=== PATIENT | female | born 2000 | race Caucasian/White ===

== ENCOUNTER 2025-02-24 15:06 | Emergency (ER) | payer OTHER, SELFPAY ==
[2025-02-24 15:08] VITALS: BP 127/68; PULSE 94; RESP 20; TEMP 37; O2SAT 98
--- NOTE | 2025-02-24 15:30 | DI.US_ITS ---
Exam(s) US PELVIS TRANSVAGINAL EXAM: US PELVIS TRANSVAGINAL CLINICAL HISTORY: bleeding post mifeprostone, post 9 days. TECHNIQUE: Transabdominal and transvaginal pelvic ultrasound was performed using standard protocol. COMPARISON: No exams were available for comparison FINDINGS: UTERUS: Position: Anteverted. Size: 10.9 long by 4.1 AP by 6.2 transverse cm Endometrium: 2.7 cm. The endometrium is thickened and heterogeneous. In addition complex fluid is se en within the canal. This may reflect hemorrhage. Myometrium: Unremarkable. Cervix: Unremarkable. OVARIES: Right: 3.5 x 1.7 x 3.4 cm Cyst or mass: No suspicious cystic or solid masses. Left: 1.9 x 1.4 x 2.4 cm Cyst or mass: No suspicious cystic or solid masses. DOPPLER: Color: Symmetric and uniform flow to both ovaries. CUL-DE-SAC: Free fluid: None. Other: None. IMPRESSION: 1. Thickened endometrium at 2.7 cm with heterogeneous fluid seen within the endometrial canal suggest ing hemorrhage. 2. Unremarkable bilateral ovaries. DATA REPOSITORY:
[2025-02-24 17:51] LABS: Abs Immature Grans 0.07 10^3/uL (0.0-0.06); Absolute Basophil Count 0.04 10^3/uL (0.0-0.2); Absolute Eosinophil Count 0.13 10^3/uL (0.0-0.7); Absolute Lymphocyte Count 1.41 10^3/uL (1.2-3.4); Absolute Monocyte Count 0.53 10^3/uL (0.1-0.8); Absolute Neutrophil Count 7.96 10^3/uL (1.2-6.7); Basophils % 0.4 %; Eosinophils % 1.3 %; HCT 35.6 % (36.0-46.0); HGB 11.6 g/dL (11.2-15.7); Immature Grans % 0.7 %; Lymphocytes % 13.9 %; MCH 28.2 pg (27.0-33.0); MCHC 32.6 % (32.0-36.0); MCV 87 fL (80-95); MPV 9.5 fL (8.0-11.0); Monocytes % 5.2 %; Neutrophils % 78.5 %; Platelet Count 265 10^3/uL (130-400); RBC 4.11 10^6/uL (3.93-5.22); RDW-SD 41.1 fL; WBC 10.14 10^3/uL (4.4-10.8)
[2025-02-24 17:58] LABS: ALT 33 U/L (14-59); AST 11 U/L (15-37); Albumin 3.9 g/dL (3.4-5.0); Alkaline Phosphatase 69 U/L (46-116); BUN 12 mg/dL (7-18); Bilirubin, Total 0.4 mg/dL (0.2-1.0); Calcium 8.9 mg/dL (8.5-10.1); Chloride 104 mmol/L (98-107); Estimated GFR 80.18 (mL/min/1.73m2); Glucose 95 mg/dL (74-106); Potassium 3.4 mmol/L (3.5-5.1); Sodium 141 mmol/L (136-145); Total Protein 7.3 g/dL (6.4-8.2)
[2025-02-24 18:17] LABS: HCG Quant, Pregnancy 4485 mIU/mL (1-3)
[2025-02-24 18:36] LABS: Bilirubin Color Interference (Negative); Blood Color Interference (Negative); Clarity Cloudy (Clear); Glucose Color Interference mg/dL (Negative); Ketones Color Interference mg/dL (Negative); Nitrite Color Interference (Negative); Specific Gravity 1.011 (1.005-1.025); Urobilinogen Color Interference mg/dL (Up to 0.2)
[2025-02-24 18:37] LABS: Leukocyte Esterase Color Interference (Negative); RBC >50 HPF (0-2)
[2025-02-24 18:38] LABS: C & S Indicated? Yes
[2025-02-24] MEDS: miSOPROStol 100 MCG TAB 1800 MCG PO (19:09)
[2025-02-24 19:15] VITALS: BP 113/55; PULSE 79; RESP 12; TEMP 36.5; O2SAT 99
--- NOTE | 2025-02-24 20:16 | W.ED.GENAD ---
Discharge Plan Disposition Patient Disposition: Home Condition: Stable Discharge Details Clinical Impression: complicated with hemorrhage Primary Care Provider: Unknown,Unknown ED Provider: Shirley Taylor Home Meds and New Rx's Prescriptions: Continued verapamil 120 mg tablet extended release 120 mg PO DAILY Qty: 30 5RF cholecalciferol (vitamin D3) 250 mcg (10,000 unit) capsule 250 mcg PO DAILY lamotrigine 25 mg tablet extended release 24hr 25 mg PO DAILY bupropion HCl 150 mg tablet extended release 24 hr 150 mg PO DAILY hydroxyzine HCl 25 mg tablet 25 mg PO .daily pm Discharge Instructions Instructions: Additional Instructions: We given a dose of misoprostol in the emergency department You will take another dose in 8 hours of 600 mcg or 3 pills followed by an additional dose 16 hours after the initial dose for a total of 1800 mcg in 24 hours This will cause cramping and bleeding It is imperative that you follow-up with newspaper stuffer to be sure that you have completed the as you can develop infection or hemorrhage Should you develop significant worsening in bleeding weakness or dizziness you should be reevaluated immediately Stand Alone Forms: Work Release Referrals: Tiffany Alfaro DO [OSTEOPATHIC DOCTOR] - 1 day HPI General Date/Time Provider Initiated Documentation: 02/24/25 15:15. HPI Narrative: The patient is a 25-year-old female who took misoprostol after being informed of demise at [facility] and visiting [facility] She started bleeding the same day, which has worsened over the past 2 days. She reports using 6 to 10 pads today. She has no significant pain, fever, chills, nausea, vomiting, dizziness, or weakness. She is otherwise healthy without a history of bleeding disorder. Related Data Home Medications ?Medication ?Instructions ?Recorded ?Confirmed cholecalciferol (vitamin D3) 250 250 mcg PO DAILY 02/20/24 02/24/25 mcg (10,000 unit) capsule lamotrigine 25 mg tablet,extended 25 mg PO DAILY 02/20/24 02/24/25 release 24 hr verapamil 120 mg tablet,extended 120 mg PO DAILY #30 tabs 02/27/24 02/24/25 release bupropion HCl 150 mg 24 hr tablet, 150 mg PO DAILY 02/24/25 02/24/25 extended release hydroxyzine HCl 25 mg tablet 25 mg PO .daily pm 02/24/25 02/24/25 Previous Rx's ?Medication ?Instructions ?Recorded verapamil 120 mg tablet,extended 120 mg PO DAILY #30 tabs 02/27/24 release Allergies Allergy/AdvReac Type Severity Reaction Status Date / Time amoxicillin Allergy Unknown Hives Verified 02/24/25 15:12 General Stated Complaint: INDIRECT SALES EXEC RENETTA: 3 Exam Narrative Exam Narrative: General Appearance: Alert and oriented, speaking in complete sentences without pallor or tachycardia. No acute distress. Vital signs: Within normal limits. HEENT: Within normal limits. Respiratory: Within normal limits. Cardiovascular: Regular heart rate and rhythm. Gastrointestinal: Suprapubic tenderness. Genitourinary: Within normal limits. Skin: Warm and dry, no rash. Neurological: Normal. Course Vital Signs Vital signs: Vital Signs Temperature 37.0 C 02/24/25 15:08 Pulse 94 H 02/24/25 15:08 Respiratory Rate 20 02/24/25 15:08 Blood Pressure 127/68 02/24/25 15:08 Pulse Oximetry 98 02/24/25 15:08 Temperature 36.5 C 02/24/25 19:15 Temperature Source Tympanic 02/24/25 19:15 Pulse 79 02/24/25 19:15 Respiratory Rate 12 02/24/25 19:15 Blood Pressure 113/55 L 02/24/25 19:15 Blood Pressure Mean 74 02/24/25 19:15 Blood Pressure Position Sitting 02/24/25 15:08 Pulse Oximetry 99 02/24/25 19:15 Oxygen Delivery Method Room Air 02/24/25 19:15 Oxygen Flow Rate 0 02/24/25 19:15 Pain Level 3 02/24/25 19:15 Lab/Test Results Lab/Test Results: 02/24/25 18:00 Urine - Reflex from Ua Urine Culture - Pending Laboratory Tests Range/Units 02/24/25 02/24/25 17:10 18:00 WBC (4.4-10.8) 10^3/uL 10.14 RBC (3.93-5.22) 10^6/uL 4.11 Hgb (11.2-15.7) g/dL 11.6 Hct (36.0-46.0) % 35.6 L MCV (80-95) fL 87 MCH (27.0-33.0) pg 28.2 MCHC (32.0-36.0) % 32.6 RDW (11.7-14.6) % 13.0 Plt Count (130-400) 10^3/uL 265 MPV (8.0-11.0) fL 9.5 Immature Gran % % 0.7 Neutrophils % % 78.5 Lymphocytes % % 13.9 Monocytes % % 5.2 Eosinophils % % 1.3 Basophils % % 0.4 Nucleated RBC % (0.0-0.3) % 0.0 Absolute Neutrophils (1.2-6.7) 10^3/uL 7.96 H Absolute Lymphocytes (1.2-3.4) 10^3/uL 1.41 Absolute Monocytes (0.1-0.8) 10^3/uL 0.53 Absolute Eosinophils (0.0-0.7) 10^3/uL 0.13 Absolute Basophils (0.0-0.2) 10^3/uL 0.04 Sodium (136-145) mmol/L 141 Potassium (3.5-5.1) mmol/L 3.4 L Chloride (98-107) mmol/L 104 Carbon Dioxide (21.0-32.0) mmol/L 26.0 Anion Gap (3-11) mmol/L 11.0 BUN (7-18) mg/dL 12 Creatinine (0.55-1.02) mg/dL 1.0 Est GFR (CKD-EPI 2020) (mL/min/1.73m2) 80.18 Glucose (74-106) mg/dL 95 Calcium (8.5-10.1) mg/dL 8.9 Total Bilirubin (0.2-1.0) mg/dL 0.4 AST (15-37) U/L 11 L ALT (14-59) U/L 33 Alkaline Phosphatase (46-116) U/L 69 Total Protein (6.4-8.2) g/dL 7.3 Albumin (3.4-5.0) g/dL 3.9 Beta HCG, Quant (1-3) mIU/mL 4485 H Urine Color (Yellow) Red Urine Clarity (Clear) Cloudy Urine pH Not Applicable Ur Specific [place] (1.005-1.025) 1.011 Urine Protein (Neg-Trace) mg/dL Color Interference Urine Ketones (Negative) mg/dL Color Interference Urine Blood (Negative) Color Interference Urine Nitrite (Negative) Color Interference Urine Bilirubin (Negative) Color Interference Urine Urobilinogen (Up to 0.2) mg/dL Color Interference Ur Leukocyte Esterase (Negative) Color Interference Urine RBC (0-2) HPF >50 H Urine WBC (0-5) HPF Ur Epithelial Cells Not Applicable Urine Crystals Not Applicable Urine Bacteria Not Applicable Urine Mucus Not Applicable Ur Culture Indicated? Yes Urine Glucose (Negative) mg/dL Color Interference ABO/Rh O Positive POC- Test(urine) Positive Medical Decision Making CBC within normal limits. Mild hypokalemia (3.4). Beta quant decreased from 39,000 to 4485. RBCs in urine consistent with bleeding. Pelvic ultrasound shows 2.7 cm thickened endometrium with likely hemorrhage. Radiology interpretation of my review Initial Assessment: 25-year-old female with post-miscarriage bleeding, worsened over the past 2 days. Using 6-10 pads today. No significant pain, fever, chills, nausea, or vomiting. Alert, oriented, and in no acute distress. ED Course: - CBC within normal limits - Chemistry with mild hypokalemia (3.4), supplement at home - Beta quant 4485, decreased from 39,000 - RBCs in urine consistent with bleeding - Pelvic ultrasound read by radiologist: 2.7 cm thickened endometrium with likely hemorrhage - Discussed results with Dr. Alfaro, INDIRECT SALES EXEC - Recommendation: 600 mcg misoprostol 3 times daily for 24 hours - Patient hemodynamically stable - Given Dr. Alfaro's information for follow-up - Encouraged return immediately if worsening complaints - Recheck in 24-48 hours with gynecology recommended Final Assessment: Post-miscarriage bleeding with worsened symptoms over the past 2 days. Hemodynamically stable. Treatment includes misoprostol and potassium supplementation. Follow-up with Dr. Alfaro, INDIRECT SALES EXEC, and recheck in 24-48 hours. Clinical Impression: - Post-miscarriage bleeding Disposition: - Discharge - Follow-Up: Dr. Alfaro, INDIRECT SALES EXEC, recheck in 24-48 hours MDM Components Evaluation: - Number of Differential Diagnoses or Management Options: Post-miscarriage bleeding - Amount and Complexity of Data Reviewed: CBC, chemistry, beta quant, urine analysis, pelvic ultrasound - Risk of Complication and Morbidity or Mortality: Moderate risk due to significant bleeding, but patient is hemodynamically stable and has a follow-up plan in place. Quality:SDOH Health Related Social Needs: No Data to Display [facility] All Active Problems (Updated 02/24/25 @ 18:22 by KATI Carpenter) complicated with hemorrhage (Acute) Nonspecific paroxysmal spell (Acute) Migraine headache without aura (Acute) Chronic headache (Acute) Medical History Morbid obesity Mood disorder Surgical History Hx of section History of cholecystectomy Social History Smoking/Tobacco Use Status: Never Smoking risk assessment performed?: Yes Alcohol Intake: current Alcohol Intake frequency: a few times a month Alcohol type: beer Details: 1-2 TIMES PER MONTH BEER Drug use: Occasionally Substance use type: marijuana Details: 1-2X PER MONTH Adopted: Yes Household members: family Housing: apartment Number of Children: 1 current occupation: [employer] What is your relationship status?: Panel score (0-1 are the most socially isolated patients): 0
== END 2025-02-24 19:30 | disposition home or self-care (01) ==
PROVIDERS: Emergency Provider Physician Assistant
DX: O04.6 Delayed or excessive hemorrhage following (induced) termination of pregnancy (principal)
CPT/HCPCS: 36415; 80053; 81025; 86900; 86901; 99284; 76830; 76856; 81003; 81015; 84702; 85025; 87086

== ENCOUNTER 2025-03-16 13:57 | Observation (INO) | payer OTHER, SELFPAY ==
[2025-03-16] VITALS (41 sets, daily range): BP systolic 100–139; BP diastolic 40–96; PULSE 72–120; RESP 6–25; TEMP 36.2–36.7; O2SAT 96–100; BMI 36.8
[2025-03-16] MEDS: Normal Saline 1,000 ML 1000 ML IV (14:13)
[2025-03-16 14:19] LABS: Bilirubin Negative (Negative); Blood Large (Negative); Clarity Cloudy (Clear); Glucose Negative (Negative); Ketones Negative (Negative); Leukocyte Esterase Small (Negative); Nitrite Negative (Negative); Urobilinogen 0.2 mg/dL (Up to 0.2); pH 8.5 (5-8)
[2025-03-16 14:29] LABS: Bacteria Moderate HPF (Negative); Casts Negative LPF (Negative); Crystals Negative HPF (Negative); Epithelial Cells Rare HPF (Negative); Mucus Moderate (Negative)
[2025-03-16 14:30] LABS: C & S Indicated? Yes
--- NOTE | 2025-03-16 14:30 | DI.US_ITS ---
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 COMPARISON: US US PELVIS TRANSVAGINAL from 02/24/2025 FINDINGS: UTERUS: Retroflexed. 9.7 x 3.7 x 4.6 cm Endometrium: 24 mm . Markedly heterogeneous and hypervascular, suspicious for retained products of co nception. Similar appearance to prior exam. Myometrium: Unremarkable. Cervix: Unremarkable. OVARIES: Right: Cyst or mass: None. Left: Not visualized DOPPLER: Color: Symmetric and uniform flow to both ovaries. No hyperemia. CUL-DE-SAC: Free fluid: None. IMPRESSION: 1. Thickened and heterogeneous, hypervascular endometrium, consistent with retained products of jose ption.. 2. Findings called to Jerry Lopez, ER provider. DATA REPOSITORY:
--- NOTE | 2025-03-16 14:30 | DI.US_ITS ---
Exam(s) US ABDOMEN LIMITED EXAM: US ABDOMEN LIMITED CLINICAL HISTORY: ruq pain, hx of cristian TECHNIQUE: Ultrasound abdomen performed using standard protocol. COMPARISON: No exams were available for comparison FINDINGS: LIVER: Normal size. Mildly increased echogenicity consistent with mild hepatic steatosis. No focal liver lesions are seen. GALLBLADDER: Cholecystectomy. BILIARY SYSTEM: No intrahepatic or extrahepatic biliary ductal dilation. Right KIDNEY: Normal size. No evidence of renal calculi. No evidence of hydronephrosis. No renal mas s or cyst identified. PANCREAS: Normal where visualized. ABDOMINAL AORTA AND IVC: Visualized portions normal caliber. ASCITES: None seen. IMPRESSION: Status post cholecystectomy. Mild hepatic steatosis. No biliary dilatation. DATA REPOSITORY:
[2025-03-16 14:43] LABS: Abs Immature Grans 0.05 10^3/uL (0.0-0.06); Absolute Basophil Count 0.04 10^3/uL (0.0-0.2); Absolute Eosinophil Count 0.15 10^3/uL (0.0-0.7); Absolute Lymphocyte Count 0.58 10^3/uL (1.2-3.4); Absolute Neutrophil Count 10.26 10^3/uL (1.2-6.7); Basophils % 0.3 %; Eosinophils % 1.3 %; Immature Grans % 0.4 %; MCH 25.8 pg (27.0-33.0); MCHC 31.3 % (32.0-36.0); MCV 83 fL (80-95); MPV 9.4 fL (8.0-11.0); Monocytes % 5.1 %; Neutrophils % 87.9 %; Platelet Count 331 10^3/uL (130-400); RBC 3.87 10^6/uL (3.93-5.22); RDW 13.5 % (11.7-14.6); RDW-SD 40.7 fL; WBC 11.67 10^3/uL (4.4-10.8)
[2025-03-16 14:54] LABS: Lipase 28 U/L (<78)
[2025-03-16 15:05] LABS: ALT 37 U/L (14-59); AST 31 U/L (15-37); Albumin 4.1 g/dL (3.4-5.0); Alkaline Phosphatase 57 U/L (46-116); Anion Gap 8.2 mmol/L (3-11); BUN 17 mg/dL (7-18); Bilirubin, Total 0.5 mg/dL (0.2-1.0); CO2 26.8 mmol/L (21.0-32.0); CREATININE 0.8 mg/dL (0.55-1.02); Calcium 8.7 mg/dL (8.5-10.1); Chloride 102 mmol/L (98-107); Glucose 94 mg/dL (74-106); HCG Quant, Pregnancy 198 mIU/mL (1-3); Potassium 4.3 mmol/L (3.5-5.1); Sodium 137 mmol/L (136-145); Total Protein 7.4 g/dL (6.4-8.2)
[2025-03-16 15:12] LABS: Prothrombin Time 9.7 sec (9.1-11.1)
--- NOTE | 2025-03-16 15:34 | ED.GENADUL_ITS ---
Discharge Plan Disposition Patient Disposition: Admit to [facility] Condition: Stable Discharge Details Clinical Impression: Retained products of conception following Admit Date/Time: 03/16/25 19:34 Admit Provider: Sabina Cardenas Attending Provider: Sabina Cardenas Primary Care Provider: Erlinda Verduzco ED Provider: Jerry Lopez Discharge Data Discharge Date/Time-TO BE ENTERED AT DEPARTURE: 03/16/25 18:30 HPI <KATI Carpenter - Last Filed: 03/17/25 09:39> General Date/Time Provider Initiated Documentation: 03/16/25 14:12 . HPI Narrative: The patient is a 25-year-old female who presents approximately 1 month post chemical , reporting pain and intermittent vaginal bleeding. She reports experiencing pain in the right lower quadrant and right upper quadrant of her abdomen. She does not endorse any associated nausea or vomiting but admits to feeling lightheaded. She has not been sexually active since the chemical . She took 2 doses of methotrexate as prescribed at her last visit here and had a follow-up with [facility], but states she has not had a repeat ultrasound since that time. Related Data Home Medications ?Medication ?Instructions ?Recorded ?Confirmed cholecalciferol (vitamin D3) 250 250 mcg PO DAILY 02/20/24 03/16/25 mcg (10,000 unit) capsule lamotrigine 25 mg tablet,extended 25 mg PO DAILY 02/20/24 03/16/25 release 24 hr verapamil 120 mg tablet,extended 120 mg PO DAILY #30 tabs 02/27/24 03/16/25 release bupropion HCl 150 mg 24 hr tablet, 150 mg PO DAILY 02/24/25 03/16/25 extended release hydroxyzine HCl 25 mg tablet 25 mg PO .daily pm 02/24/25 03/16/25 doxycycline hyclate 100 mg capsule 100 mg PO Q12H 5 days #10 caps 03/17/25 ibuprofen 600 mg tablet 600 mg PO Q6H PRN PRN #30 tabs 03/17/25 Previous Rx's ?Medication ?Instructions ?Recorded verapamil 120 mg tablet,extended 120 mg PO DAILY #30 tabs 02/27/24 release doxycycline hyclate 100 mg capsule 100 mg PO Q12H 5 days #10 caps 03/17/25 ibuprofen 600 mg tablet 600 mg PO Q6H PRN PRN #30 tabs 03/17/25 Allergies Allergy/AdvReac Type Severity Reaction Status Date / Time amoxicillin Allergy Unknown Hives Verified 03/17/25 08:06 General Stated Complaint: Abd Prob RENETTA: 3 Exam <KATI Carpenter - Last Filed: 03/17/25 09:39> Narrative Exam Narrative: The patient is alert and oriented. She appears pale. Pupils are equal, round, and reactive to light and accommodation. There is tenderness in the right upper quadrant and right lower quadrant of the abdomen without rebound or guarding. She has no CVA tenderness. She is hemodynam ically stable. Course <KATI Carpenter - Last Filed: 03/17/25 09:39> Vital Signs Vital signs: Vital Signs Temperature 36.4 C L 03/16/25 14:02 Pulse 92 H 03/16/25 14:02 Respiratory Rate 18 03/16/25 14:02 Blood Pressure 110/72 03/16/25 14:02 Pulse Oximetry 99 03/16/25 14:02 Temperature 36.4 C L 03/16/25 14:05 Pulse 92 H 03/16/25 14:05 Respiratory Rate 18 03/16/25 14:05 Blood Pressure 110/72 03/16/25 14:05 Pulse Oximetry 99 03/16/25 14:05 Lab/Test Results Lab/Test Results: 03/16/25 14:04 Urine - Reflex from Ua Urine Culture - Pending Laboratory Tests Range/Units 03/16/25 03/16/25 03/16/25 14:04 14:35 14:40 WBC (4.4-10.8) 10^3/uL 11.67 H RBC (3.93-5.22) 10^6/uL 3.87 L Hgb (11.2-15.7) g/dL 10.0 L Hct (36.0-46.0) % 32.0 L MCV (80-95) fL 83 MCH (27.0-33.0) pg 25.8 L MCHC (32.0-36.0) % 31.3 L RDW (11.7-14.6) % 13.5 Plt Count (130-400) 10^3/uL 331 MPV (8.0-11.0) fL 9.4 Immature Gran % % 0.4 Neutrophils % % 87.9 Lymphocytes % % 5.0 Monocytes % % 5.1 Eosinophils % % 1.3 Basophils % % 0.3 Nucleated RBC % (0.0-0.3) % 0.0 Absolute Neutrophils (1.2-6.7) 10^3/uL 10.26 H Absolute Lymphocytes (1.2-3.4) 10^3/uL 0.58 L Absolute Monocytes (0.1-0.8) 10^3/uL 0.60 Absolute Eosinophils (0.0-0.7) 10^3/uL 0.15 Absolute Basophils (0.0-0.2) 10^3/uL 0.04 PT (9.1-11.1) sec INR (0.9-1.1) Sodium (136-145) mmol/L 137 Potassium (3.5-5.1) mmol/L 4.3 Chloride (98-107) mmol/L 102 Carbon Dioxide (21.0-32.0) mmol/L 26.8 Anion Gap (3-11) mmol/L 8.2 BUN (7-18) mg/dL 17 Creatinine (0.55-1.02) mg/dL 0.8 Est GFR (CKD-EPI 2020) (mL/min/1.73m2) 104.80 Glucose (74-106) mg/dL 94 Calcium (8.5-10.1) mg/dL 8.7 Total Bilirubin (0.2-1.0) mg/dL 0.5 AST (15-37) U/L 31 ALT (14-59) U/L 37 Alkaline Phosphatase (46-116) U/L 57 Total Protein (6.4-8.2) g/dL 7.4 Albumin (3.4-5.0) g/dL 4.1 Lipase (<78) U/L 28 Beta HCG, Quant (1-3) mIU/mL 198 H Urine Color (Yellow) Yellow Urine Clarity (Clear) Cloudy Urine pH (5-8) 8.5 H Ur Specific [place] (1.005-1.025) 1.020 Urine Protein (Neg-Trace) mg/dL >=300 H Urine Ketones (Negative) mg/dL Negative Urine Blood (Negative) Large H Urine Nitrite (Negative) Negative Urine Bilirubin (Negative) Negative Urine Urobilinogen (Up to 0.2) mg/dL 0.2 Ur Leukocyte Esterase (Negative) Small H Urine RBC (0-2) HPF 10-20 H Urine WBC (0-5) HPF 10-20 H Ur Epithelial Cells (Negative) HPF Rare Urine Crystals (Negative) HPF Negative Urine Bacteria (Negative) HPF Moderate Urine Casts (Negative) LPF Negative Urine Mucus (Negative) Moderate Ur Culture Indicated? Yes Urine Glucose (Negative) mg/dL Negative ABO/Rh O Positive Antibody Screen NEGATIVE Range/Units 03/16/25 14:52 WBC (4.4-10.8) 10^3/uL RBC (3.93-5.22) 10^6/uL Hgb (11.2-15.7) g/dL Hct (36.0-46.0) % MCV (80-95) fL MCH (27.0-33.0) pg MCHC (32.0-36.0) % RDW (11.7-14.6) % Plt Count (130-400) 10^3/uL MPV (8.0-11.0) fL Immature Gran % % Neutrophils % % Lymphocytes % % Monocytes % % Eosinophils % % Basophils % % Nucleated RBC % (0.0-0.3) % Absolute Neutrophils (1.2-6.7) 10^3/uL Absolute Lymphocytes (1.2-3.4) 10^3/uL Absolute Monocytes (0.1-0.8) 10^3/uL Absolute Eosinophils (0.0-0.7) 10^3/uL Absolute Basophils (0.0-0.2) 10^3/uL PT (9.1-11.1) sec 9.7 INR (0.9-1.1) 1.0 Sodium (136-145) mmol/L Potassium (3.5-5.1) mmol/L Chloride (98-107) mmol/L Carbon Dioxide (21.0-32.0) mmol/L Anion Gap (3-11) mmol/L BUN (7-18) mg/dL Creatinine (0.55-1.02) mg/dL Est GFR (CKD-EPI 2020) (mL/min/1.73m2) Glucose (74-106) mg/dL Calcium (8.5-10.1) mg/dL Total Bilirubin (0.2-1.0) mg/dL AST (15-37) U/L ALT (14-59) U/L Alkaline Phosphatase (46-116) U/L Total Protein (6.4-8.2) g/dL Albumin (3.4-5.0) g/dL Lipase (<78) U/L Beta HCG, Quant (1-3) mIU/mL Urine Color (Yellow) Urine Clarity (Clear) Urine pH (5-8) Ur Specific [place] (1.005-1.025) Urine Protein (Neg-Trace) mg/dL Urine Ketones (Negative) mg/dL Urine Blood (Negative) Urine Nitrite (Negative) Urine Bilirubin (Negative) Urine Urobilinogen (Up to 0.2) mg/dL Ur Leukocyte Esterase (Negative) Urine RBC (0-2) HPF Urine WBC (0-5) HPF Ur Epithelial Cells (Negative) HPF Urine Crystals (Negative) HPF Urine Bacteria (Negative) HPF Urine Casts (Negative) LPF Urine Mucus (Negative) Ur Culture Indicated? Urine Glucose (Negative) mg/dL ABO/Rh Antibody Screen POC- Test(urine) Positive Medical Decision Making <KATI Carpenter - Last Filed: 03/17/25 09:39> Laboratory Studies Mild anemia, decreased from 11.6 to 10. Hemoglobin and hematocrit decreased from 36 to 32. Beta hCG has decreased from 4485 to 198. Large blood in urine and some white blood cells, O+. Small leukocyte Estrace, negative nitrate, very mild leukocytosis at 11,000. 1. Post-chemical status. An ultrasound of the right upper quadrant and pelvis is pending. The care will be transitioned to Dr. Xavi Lopez, contingent on the ultrasound results. She is currently receiving 1 L of fluid and IV Tylenol for pain management. 2. Mild anemia. Diagnostic labs show mild anemia, with hemoglobin decreasing from 11.6 g/dL to 10 g/dL and hematocrit decreasing from 36% to 32%. No immediate intervention is required, but monitoring will continue. 3. Intermittent vaginal bleeding. Beta-hCG levels have decreased from 4485 ng/mL on 07/07/2024 to 198 ng/mL today. Further evaluation and monitoring are necessary to determine the cause and appropriate treatment. 4. Mild leukocytosis. She has very mild leukocytosis with a leukocyte count of 11,000, O+, and small leukocyte esterase, negative nitrate. An ultrasound will help assess the extent of leukocytosis. Quality:SDOH Health Related Social Needs: No Data to Display PFSH <KATI Carpenter - Last Filed: 03/17/25 09:39> All Active Problems (System 03/17/25 @ 08:06 by Brissa Gill) Incomplete (Acute) Retained products of conception following (Acute) complicated with hemorrhage (Acute) Nonspecific paroxysmal spell (Acute) Migraine headache without aura (Acute) Chronic headache (Acute) Medical History Morbid obesity Mood disorder Surgical History Hx of section History of cholecystectomy Social History (System 03/17/25 @ 08:06 by Brissa Gill) Smoking/Tobacco Use Status: Never Smoking risk assessment performed?: Yes Alcohol Intake: current Alcohol Intake frequency: a few times a month Alcohol type: beer Details: 1-2 TIMES PER MONTH BEER Drug use: Daily Substance use type: marijuana Details: 1-2X PER MONTH Adopted: Yes Household members: family Housing: apartment Number of Children: 1 current occupation: [employer] What is your relationship status?: Panel score (0-1 are the most socially isolated patients): 0 Do you feel safe at home: Yes Do you feel safe in your relationship?: Yes History History 9 Para Hx # Term Pregnancies 1 Multiple births Hx # Pregnancies Ectopic pregnancies AB induced 8 Hx Number of Living Children 1 AB spontaneous Past Pregnancies Del. Date GA/Weeks # Preg Succ Route Wgt Sex Labor Lgth Anesth esia Location [facility] 10/29/20 PAWSS <KATI Carpenter - Last Filed: 03/17/25 09:39> Have you Been Recently Intoxicated or Drunk Within the Last 30 days?: No Have you Ever Experienced Previous Episodes of Alcohol Withdrawal?: No Have you ever Experienced Withdrawal Seizures?: No Have you ever Experienced Delirium Tremens(DT)s?: No Have you ever undergone Alcohol Rehabilitation Treatment (i.e, inpt ot outpatient treatment programs)?: No Have you ever Experienced Blackouts?: No Have you ever Combined Alcohol with other Downers within the last 90 days?: No Have you ever Combined Alcohol with any other Substance of Abuse during the last 90 days?: No Positive Blood Alcohol level on Presentation? [PCS.BAL]: No Evidence of Increased Autonomic Activity (i.e. HR>120, tremor, sweating, agitation, nausea)?: No Result: 0 <KATI Cevallos - Last Filed: 03/16/25 17:21> Result: 0
[2025-03-16] MEDS: ACETAMINOPHEN 1,000 MG/100 ML BTL 400 MG IVPB (15:49)
--- NOTE | 2025-03-16 16:00 | W.EDPROG ---
Date of service: 03/16/25 Time of Service: 16:00 Medical Decision Making This dictation utilizes [id number] dictation software and may contain unedited grammatical errors. Patient seen in signout from Shirley Taylor PA-C, please see her complete note. Essentially this 25-year-old female underwent a chemical last month with methotrexate x 3, there are pending studies of ultrasound of abdomen and pelvis, she has dropped 1.6 g of hemoglobin since late January, there is a question of retained products at her last visit from ultrasound, if studies are positive she will likely need a D&C with [employer] consult and follow-up, negative studies would warrant CT, she does have 10-20 WBCs in her urine with culture pending. Patients' medical history: complicated by hemorrhage, migraine syndrome. Family and social history: Denies IVDU or EtOH use. Pertinent exam findings / vital signs include diffuse mild lower abdominal tenderness without peritoneal signs. Differential / pathologies of concern include retained products of conception, PID, UTI. Diagnostic studies of: - Reviewed prior basic labs shows anemia with hemoglobin 10, 10-20 WBCs on UA. - US pelvic results with likely retained products of conception with very vascular heterogeneous endometrium Interventions of: - 1L IVF NS ordered post-sign out. - Consult OBGYN Dr. Cardenas, will admit for D&C. ED Course/Assessment/Plan: 25-year-old female seen in signout with ultrasounds pending, she is had prior chemical due to retained products after miscarriage, she had methotrexate X3, has had some bleeding but no overt hemorrhage, discussed with OB on-call who will take her for D&C and admit overnight tonight due to mild leukocytosis and prolonged period of retained contents. Patient was onboard with this plan. Findings not consistent with PID, hemorrhage. Disposition of Retained Products of Conception After . Patient verbalized understanding of the plan and return to ED criteria and engaged in shared decision making. Medical Records Medical records reviewed: Yes I reviewed the patient's medical records. 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 COMPARISON: US US PELVIS TRANSVAGINAL from 02/24/2025 FINDINGS: UTERUS: Retroflexed. 9.7 x 3.7 x 4.6 cm Endometrium: 24 mm . Markedly heterogeneous and hypervascular, suspicious for retained products of conception. Similar appearance to prior exam. Myometrium: Unremarkable. Cervix: Unremarkable. OVARIES: Right: Cyst or mass: None. Left: Not visualized DOPPLER: Color: Symmetric and uniform flow to both ovaries. No hyperemia. CUL-DE-SAC: Free fluid: None. IMPRESSION: 1. Thickened and heterogeneous, hypervascular endometrium, consistent with retained products of conception.. 2. Findings called to Jerry Lopez, ER provider. Radiologic Study #2: Attestation: I personally reviewed and interpreted this imaging study as follows: Imaging: Ultrasound Radiologist's impression: EXAM: US ABDOMEN LIMITED CLINICAL HISTORY: ruq pain, hx of cristian TECHNIQUE: Ultrasound abdomen performed using standard protocol. COMPARISON: No exams were available for comparison FINDINGS: LIVER: Normal size. Mildly increased echogenicity consistent with mild hepatic steatosis. No focal liver lesions are seen. GALLBLADDER: Cholecystectomy. BILIARY SYSTEM: No intrahepatic or extrahepatic biliary ductal dilation. Right KIDNEY: Normal size. No evidence of renal calculi. No evidence of hydronephrosis. No renal mass or cyst identified. PANCREAS: Normal where visualized. ABDOMINAL AORTA AND IVC: Visualized portions normal caliber. ASCITES: None seen. IMPRESSION: Status post cholecystectomy. Mild hepatic steatosis. No biliary dilatation. Lab Data Lab results reviewed: Yes I reviewed the patient's lab results. Labs: 03/16/25 14:04 Urine - Reflex from Ua Urine Culture - Pending Laboratory Tests Range/Units 03/16/25 03/16/25 03/16/25 14:04 14:35 14:40 WBC (4.4-10.8) 10^3/uL 11.67 H RBC (3.93-5.22) 10^6/uL 3.87 L Hgb (11.2-15.7) g/dL 10.0 L Hct (36.0-46.0) % 32.0 L MCV (80-95) fL 83 MCH (27.0-33.0) pg 25.8 L MCHC (32.0-36.0) % 31.3 L RDW (11.7-14.6) % 13.5 Plt Count (130-400) 10^3/uL 331 MPV (8.0-11.0) fL 9.4 Immature Gran % % 0.4 Neutrophils % % 87.9 Lymphocytes % % 5.0 Monocytes % % 5.1 Eosinophils % % 1.3 Basophils % % 0.3 Nucleated RBC % (0.0-0.3) % 0.0 Absolute Neutrophils (1.2-6.7) 10^3/uL 10.26 H Absolute Lymphocytes (1.2-3.4) 10^3/uL 0.58 L Absolute Monocytes (0.1-0.8) 10^3/uL 0.60 Absolute Eosinophils (0.0-0.7) 10^3/uL 0.15 Absolute Basophils (0.0-0.2) 10^3/uL 0.04 PT (9.1-11.1) sec INR (0.9-1.1) Sodium (136-145) mmol/L 137 Potassium (3.5-5.1) mmol/L 4.3 Chloride (98-107) mmol/L 102 Carbon Dioxide (21.0-32.0) mmol/L 26.8 Anion Gap (3-11) mmol/L 8.2 BUN (7-18) mg/dL 17 Creatinine (0.55-1.02) mg/dL 0.8 Est GFR (CKD-EPI 2020) (mL/min/1.73m2) 104.80 Glucose (74-106) mg/dL 94 Calcium (8.5-10.1) mg/dL 8.7 Total Bilirubin (0.2-1.0) mg/dL 0.5 AST (15-37) U/L 31 ALT (14-59) U/L 37 Alkaline Phosphatase (46-116) U/L 57 Total Protein (6.4-8.2) g/dL 7.4 Albumin (3.4-5.0) g/dL 4.1 Lipase (<78) U/L 28 Beta HCG, Quant (1-3) mIU/mL 198 H Urine Color (Yellow) Yellow Urine Clarity (Clear) Cloudy Urine pH (5-8) 8.5 H Ur Specific [place] (1.005-1.025) 1.020 Urine Protein (Neg-Trace) mg/dL >=300 H Urine Ketones (Negative) mg/dL Negative Urine Blood (Negative) Large H Urine Nitrite (Negative) Negative Urine Bilirubin (Negative) Negative Urine Urobilinogen (Up to 0.2) mg/dL 0.2 Ur Leukocyte Esterase (Negative) Small H Urine RBC (0-2) HPF 10-20 H Urine WBC (0-5) HPF 10-20 H Ur Epithelial Cells (Negative) HPF Rare Urine Crystals (Negative) HPF Negative Urine Bacteria (Negative) HPF Moderate Urine Casts (Negative) LPF Negative Urine Mucus (Negative) Moderate Ur Culture Indicated? Yes Urine Glucose (Negative) mg/dL Negative ABO/Rh O Positive Antibody Screen NEGATIVE Range/Units 03/16/25 14:52 WBC (4.4-10.8) 10^3/uL RBC (3.93-5.22) 10^6/uL Hgb (11.2-15.7) g/dL Hct (36.0-46.0) % MCV (80-95) fL MCH (27.0-33.0) pg MCHC (32.0-36.0) % RDW (11.7-14.6) % Plt Count (130-400) 10^3/uL MPV (8.0-11.0) fL Immature Gran % % Neutrophils % % Lymphocytes % % Monocytes % % Eosinophils % % Basophils % % Nucleated RBC % (0.0-0.3) % Absolute Neutrophils (1.2-6.7) 10^3/uL Absolute Lymphocytes (1.2-3.4) 10^3/uL Absolute Monocytes (0.1-0.8) 10^3/uL Absolute Eosinophils (0.0-0.7) 10^3/uL Absolute Basophils (0.0-0.2) 10^3/uL PT (9.1-11.1) sec 9.7 INR (0.9-1.1) 1.0 Sodium (136-145) mmol/L Potassium (3.5-5.1) mmol/L Chloride (98-107) mmol/L Carbon Dioxide (21.0-32.0) mmol/L Anion Gap (3-11) mmol/L BUN (7-18) mg/dL Creatinine (0.55-1.02) mg/dL Est GFR (CKD-EPI 2020) (mL/min/1.73m2) Glucose (74-106) mg/dL Calcium (8.5-10.1) mg/dL Total Bilirubin (0.2-1.0) mg/dL AST (15-37) U/L ALT (14-59) U/L Alkaline Phosphatase (46-116) U/L Total Protein (6.4-8.2) g/dL Albumin (3.4-5.0) g/dL Lipase (<78) U/L Beta HCG, Quant (1-3) mIU/mL Urine Color (Yellow) Urine Clarity (Clear) Urine pH (5-8) Ur Specific [place] (1.005-1.025) Urine Protein (Neg-Trace) mg/dL Urine Ketones (Negative) mg/dL Urine Blood (Negative) Urine Nitrite (Negative) Urine Bilirubin (Negative) Urine Urobilinogen (Up to 0.2) mg/dL Ur Leukocyte Esterase (Negative) Urine RBC (0-2) HPF Urine WBC (0-5) HPF Ur Epithelial Cells (Negative) HPF Urine Crystals (Negative) HPF Urine Bacteria (Negative) HPF Urine Casts (Negative) LPF Urine Mucus (Negative) Ur Culture Indicated? Urine Glucose (Negative) mg/dL ABO/Rh Antibody Screen Quality:SDOH Health Related Social Needs: No Data to Display Discharge Plan Disposition Patient Disposition: Admit to [facility] Condition: Stable Discharge Details Clinical Impression: Retained products of conception following Primary Care Provider: Erlinda Verduzco ED Provider: Jerry Lopez Home Meds and New Rx's Prescriptions: Continued verapamil 120 mg tablet extended release 120 mg PO DAILY Qty: 30 5RF cholecalciferol (vitamin D3) 250 mcg (10,000 unit) capsule 250 mcg PO DAILY lamotrigine 25 mg tablet extended release 24hr 25 mg PO DAILY bupropion HCl 150 mg tablet extended release 24 hr 150 mg PO DAILY hydroxyzine HCl 25 mg tablet 25 mg PO .daily pm
--- NOTE | 2025-03-16 17:30 | HPE_ITS ---
Date of service: 03/16/25 Time of Service: 17:30 Assessment and Plan Assessment and plan (1) Incomplete : Status: Acute Assessment and plan: Review of the imaging does appreciate what appears to be retained products of conception within the uterus. I do not appreciate any evidence of free fluid within the pelvis. Based on patient's presentation and this being the second time that she has presented to the emergency department for these concerns, we discussed the utility of proceeding with suction dilation and curettage. We discussed risks associated with the procedure including but not limited to bleeding, infection, damage to surrounding tissues, in particular to this case, we are concerned about the potential for uterine perforation. We discussed that if uterine perforation were to occur, it could involve some of the surrounding structures, requiring further and more invasive procedures to rectify. We discussed that there are risk associated with anesthesia as well as unforeseen complications. Patient states that she would be okay receiving blood products in the event that they were needed. Given her mild white count, tenderness, second presentation, mild tachycardia I discussed overnight admission with antibiotics and monitoring in an abundance of caution. All questions were answered to the patient satisfaction. She was consented for suction dilation and curettage for incomplete 6-week elective termination. History of Present Illness Consults Consult date: 03/16/25 Requesting physician: Jerry Noel arrative: 25-year-old -0-8-1 ( x 1) presents to the ED for abdominal pain that has progressively worsened over the course the day. Patient reports having undergone an elective, pharmacological termination for 6-7 week (first day last menstrual period 12/25/2024) on February 14, 2025. Patient reports she again presented to the emergency department on February 24 with concerns for heavy bleeding. She was provided with another round of medications which she took. Patient states she did have bleeding following the second dose but no considerable loss of tissue. Her bleeding resolved despite some mild intermittent abdominal pain, and she did not follow-up despite a referral. Today, she began having abdominal pain very early in the morning that progressively worsened over the course of the day. She reports becoming more fatigued as the day went on and her colleagues reportedly told her she was getting pale. She reports having tried to eat something at around 11:30 AM, but she was unable to eat due to abdominal pain. She denies any vomiting or known fevers. Patient states this is her 7th or 8th termination/miscarriage. She reports that she is usually sexually active only with females, and states she is no longer with the partner of her current . She was extensively counseled on contraceptive options and offered offered contraception multiple times but declines. Review of Systems All systems reviewed & are unremarkable except as noted in HPI and below PFSH All Active Problems (Updated 03/16/25 @ 18:17 by Sabina Cardenas DO) Incomplete (Acute) Retained products of conception following (Acute) complicated with hemorrhage (Acute) Nonspecific paroxysmal spell (Acute) Migraine headache without aura (Acute) Chronic headache (Acute) Medical History Morbid obesity Mood disorder Surgical History Hx of section History of cholecystectomy Social History Smoking/Tobacco Use Status: Never Smoking risk assessment performed?: Yes Alcohol Intake: current Alcohol Intake frequency: a few times a month Alcohol type: beer Details: 1-2 TIMES PER MONTH BEER Drug use: Daily Substance use type: marijuana Details: 1-2X PER MONTH Adopted: Yes Household members: family Housing: apartment Number of Children: 1 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 Date GA/Weeks # Preg Succ Route Wgt Sex Labor Lgth Anesth esia Location Prov Complic 10/29/20 Meds Allergies and Home Medications Allergies Allergy/AdvReac Type Severity Reaction Status Date / Time amoxicillin Allergy Unknown Hives Verified 03/16/25 14:04 Home Medications ?Medication ?Instructions ?Recorded ?Confirmed ?Type cholecalciferol (vitamin D3) 250 250 mcg PO DAILY 02/20/24 03/16/25 History mcg (10,000 unit) capsule lamotrigine 25 mg tablet,extended 25 mg PO DAILY 02/20/24 03/16/25 History release 24 hr verapamil 120 mg tablet,extended 120 mg PO DAILY #30 tabs 02/27/24 03/16/25 Rx release bupropion HCl 150 mg 24 hr tablet, 150 mg PO DAILY 02/24/25 03/16/25 History extended release hydroxyzine HCl 25 mg tablet 25 mg PO .daily pm 02/24/25 03/16/25 History Exam Narrative Exam Narrative: Note: Well-nourished female; fatigued MSKLT: No overt rashes; pale HEENT: Normocephalic; several facial piercings noted Pulm: No respiratory distress Card: Regular rate and rhythm Abdomen: Soft, nondistended, patient reports moderate tenderness with suprapubic palpation Extremities: No overt swelling Psych: Responsive and appropriate Results Imaging US - pelvic: report reviewed and image reviewed Labs 03/16/25 14:35 03/16/25 14:35 Labs: Laboratory Results - last 24 hr 03/16/25 03/16/25 03/16/25 14:04 14:35 14:40 WBC 11.67 H RBC 3.87 L Hgb 10.0 L Hct 32.0 L MCV 83 MCH 25.8 L MCHC 31.3 L RDW 13.5 Plt Count 331 MPV 9.4 Immature Gran % 0.4 Neutrophils % 87.9 Lymphocytes % 5.0 Monocytes % 5.1 Eosinophils % 1.3 Basophils % 0.3 Nucleated RBC % 0.0 Absolute Neutrophils 10.26 H Absolute Lymphocytes 0.58 L Absolute Monocytes 0.60 Absolute Eosinophils 0.15 Absolute Basophils 0.04 PT INR Sodium 137 Potassium 4.3 Chloride 102 Carbon Dioxide 26.8 Anion Gap 8.2 BUN 17 Creatinine 0.8 Est GFR (CKD-EPI 2020) 104.80 Glucose 94 Calcium 8.7 Total Bilirubin 0.5 AST 31 ALT 37 Alkaline Phosphatase 57 Total Protein 7.4 Albumin 4.1 Lipase 28 Beta HCG, Quant 198 H Urine Color Yellow Urine Clarity Cloudy Urine pH 8.5 H Ur Specific [place] 1.020 Urine Protein >=300 H Urine Ketones Negative Urine Blood Large H Urine Nitrite Negative Urine Bilirubin Negative Urine Urobilinogen 0.2 Ur Leukocyte Esterase Small H Urine RBC 10-20 H Urine WBC 10-20 H Ur Epithelial Cells Rare Urine Crystals Negative Urine Bacteria Moderate Urine Casts Negative Urine Mucus Moderate Ur Culture Indicated? Yes Urine Glucose Negative ABO/Rh O Positive Antibody Screen NEGATIVE 03/16/25 14:52 WBC RBC Hgb Hct MCV MCH MCHC RDW Plt Count MPV Immature Gran % Neutrophils % Lymphocytes % Monocytes % Eosinophils % Basophils % Nucleated RBC % Absolute Neutrophils Absolute Lymphocytes Absolute Monocytes Absolute Eosinophils Absolute Basophils PT 9.7 INR 1.0 Sodium Potassium Chloride Carbon Dioxide Anion Gap BUN Creatinine Est GFR (CKD-EPI 2020) Glucose Calcium Total Bilirubin AST ALT Alkaline Phosphatase Total Protein Albumin Lipase Beta HCG, Quant Urine Color Urine Clarity Urine pH Ur Specific [place] Urine Protein Urine Ketones Urine Blood Urine Nitrite Urine Bilirubin Urine Urobilinogen Ur Leukocyte Esterase Urine RBC Urine WBC Ur Epithelial Cells Urine Crystals Urine Bacteria Urine Casts Urine Mucus Ur Culture Indicated? Urine Glucose ABO/Rh Antibody Screen Last Vital Signs Temp 97.5 F L 03/16/25 14:05 Pulse 91 H 03/16/25 16:39 Resp 14 03/16/25 16:39 BP 120/81 03/16/25 16:39 Pulse Ox 98 03/16/25 16:39 PAWSS Have you Been Recently Intoxicated or Drunk Within the Last 30 days?: No Have you Ever Experienced Previous Episodes of Alcohol Withdrawal?: No Have you ever Experienced Withdrawal Seizures?: No Have you ever Experienced Delirium Tremens(DT)s?: No Have you ever undergone Alcohol Rehabilitation Treatment (i.e, inpt ot outpatient treatment programs)?: No Have you ever Experienced Blackouts?: No Have you ever Combined Alcohol with other Downers within the last 90 days?: No Have you ever Combined Alcohol with any other Substance of Abuse during the last 90 days?: No Positive Blood Alcohol level on Presentation? [PCS.BAL]: No Evidence of Increased Autonomic Activity (i.e. HR>120, tremor, sweating, agitation, nausea)?: No Result: 0 Time Spent Time spent with Patient: 40-54 minutes Time was spent: preparing to see the patient(eg.review tests), obtaining and/or reviewing separately otained hiistory, ordering medications,tests, procedures, referring, communicating with other health managed care coordinator, indepentently interpreting results, counseling the patient and care coordination
--- NOTE | 2025-03-16 18:04 | ANES.PREOP_ITS ---
General Info Date of Service Date Performed: 03/16/25 Height: 5 ft 1 in Weight: 88.451 kg Body Mass Index (BMI): 36.8 Meds Allergies and Home Medications Allergies Allergy/AdvReac Type Severity Reaction Status Date / Time amoxicillin Allergy Unknown Hives Verified 03/16/25 14:04 Home Medication ?Medication ?Instructions ?Recorded cholecalciferol (vitamin D3) 250 250 mcg PO DAILY 02/20/24 mcg (10,000 unit) capsule lamotrigine 25 mg tablet,extended 25 mg PO DAILY 02/20/24 release 24 hr verapamil 120 mg tablet,extended 120 mg PO DAILY #30 tabs 02/27/24 release bupropion HCl 150 mg 24 hr tablet, 150 mg PO DAILY 02/24/25 extended release hydroxyzine HCl 25 mg tablet 25 mg PO .daily pm 02/24/25 Current Visit Medications: Current Medications Generic Name Dose Route Start Last Admin Trade Name Freq PRN Reason Stop Dose Admin Ringer's Solution 500 mls @ 500 mls/hr 03/16/25 17:22 IV 03/16/25 18:21 BOLUS ONE IV Miscellaneous Supplies 1 each 03/17/25 06:00 Iv Access IV DIRECTED ANITA Povidone Iodine 0 ml 03/16/25 18:00 Povidone-Iodine Soln. 118 Ml Btl TP DIRECTED ANITA Sodium Chloride 0 ml 03/16/25 17:22 Normal Saline Flush 10 Ml Syr IVP PRN PRN Sodium Chloride 0 ml 03/16/25 20:00 Normal Saline Flush 10 Ml Syr IVP BID ANITA Sodium Chloride 0 ml 03/16/25 17:22 Normal Saline 10 Ml Vial IJ DIRECTED PRN PFSH Active Problems Active Problems: Problem Status Onset Code Retained products of conception following Acute O03.4 complicated with hemorrhage Acute O03.6 Nonspecific paroxysmal spell Acute R40.4 Migraine headache without aura Acute G43.009 Chronic headache Acute R51.9, G89.29 Medical History Medical History Morbid obesity Mood disorder Surgical History Surgical History Hx of section History of cholecystectomy Tobacco Smoking/Tobacco Use Status: Never Alcohol Alcohol Intake: current Alcohol intake frequency: a few times a month Alcohol type: beer Details: 1-2 TIMES PER MONTH BEER Substance Use Substance use: Daily Substance use type: marijuana Details: 1-2X PER MONTH Prental History History 2 9 Para Hx # Term Pregnancies 1 Multiple births Hx # Pregnancies Ectopic pregnancies AB induced 8 Hx Number of Living Children 1 AB spontaneous Past Pregnancies Del. Date GA/Weeks # Preg Succ Route Wgt Sex Labor Lgth Anesth esia Location Prov [facility] 10/29/20 Vital Signs and Lab Results Vital Signs Most Recent Vital Signs in EMR: Most Recent Vital Signs Temp Pulse Resp BP Pulse Ox 36.4 C L 91 H 14 120/81 98 03/16/25 14:05 03/16/25 16:39 03/16/25 16:39 03/16/25 16:39 03/16/25 16:39 Point of Care Results Point of Care Results: POC- Test(urine) Positive 03/16/25 14:11 Lab Results 03/16/25 14:35 03/16/25 14:35 Blood Type / Crossmatch: 2 Antibody Screen NEGATIVE 03/16/25 Complete Blood Count: 2 White Blood Count 11.67 10^3/uL (4.4-10.8) H 03/16/25 14:35 Red Blood Count 3.87 10^6/uL (3.93-5.22) L 03/16/25 14:35 Hemoglobin 10.0 g/dL (11.2-15.7) L 03/16/25 14:35 Hematocrit 32.0 % (36.0-46.0) L 03/16/25 14:35 Platelet Count 331 10^3/uL (130-400) 03/16/25 14:35 Complete Metabolic Panel: 2 Sodium 137 mmol/L (136-145) 03/16/25 14:35 Potassium 4.3 mmol/L (3.5-5.1) 03/16/25 14:35 Chloride 102 mmol/L (98-107) 03/16/25 14:35 Carbon Dioxide 26.8 mmol/L (21.0-32.0) 03/16/25 14:35 BUN 17 mg/dL (7-18) 03/16/25 14:35 Creatinine 0.8 mg/dL (0.55-1.02) 03/16/25 14:35 Est GFR (CKD-EPI 2020) 104.80 (mL/min/1.73m2) 03/16/25 14:35 Calcium 8.7 mg/dL (8.5-10.1) 03/16/25 14:35 Albumin 4.1 g/dL (3.4-5.0) 03/16/25 14:35 Glucose 94 mg/dL (74-106) 03/16/25 14:35 Liver Function Panel: 2 Alanine Aminotransferase (ALT/SGPT) 37 U/L (14-59) 03/16/25 14: 35 Aspartate Amino Transf (AST/SGOT) 31 U/L (15-37) 03/16/25 14:35 Coagulation Panel: 2 INR International Normalized Ratio 1.0 (0.9-1.1) 03/16/25 14:5 2 Prothrombin Time 9.7 sec (9.1-11.1) 03/16/25 14:52 Cardiac Panel: 2 No Data to Display Arterial Blood Gas: 2 No Data to Display Venous Blood Gas: 2 No Data to Display Pancreas Panel: 2 Lipase 28 U/L (<78) 03/16/25 14:40 Thyroid Panel: 2 No Data to Display Infectious Disease: 2 No Data to Display Blood Cultures: 2 No Data to Display Toxicology Panel: 2 No Data to Display Panel: 2 Beta HCG, Quantitative 198 mIU/mL (1-3) H 03/16/25 14:35 Anesthesia Assessment and Plan Anesthesia History Personal History: No History of Anesthesia Complications Family History: No Family History of Anesthesia Complications Exercise Tolerance Exercise Tolerance: Metabolic Equivalents>4 Pertinent Negatives Pertinent Negatives: No Symptoms of GERD, No Major Cardiovascular Symptoms or Complaints and No Major Pulmonary Symptoms or Complaints Cardiac & Pulmonary Exam Cardiac Exam: Normal S1/S2 Heart Sounds Pulmonary Exam: Clear Bilateral Breath Sounds Implantable Cardiac Device Does patient have a Pacemaker or an ICD?: No Airway Exam Known Difficult Airway: No Mallampati Class: 2 Mouth Opening: Normal (> 3cm) Thyromental Distance: Greater than 3 cm Neck Range of Motion: Full ROM Neck Circumference: Thick Teeth Condition: Normal Dentition ASA Classification ASA Score: ASA 2 Emergency Case?: No NPO Status NPO Status: NPO Small Non-Fatty Meal >6 hours Status Status: Positive HCG Anesthesia Plan Resuscitation Status: Full Code Anesthesia Technique: General Anesthesia Airway Planned: Endotracheal Tube (RSI) Monitors Used: Standard Monitors
[2025-03-16] MEDS: Lactated Ringers 500 ML IV (18:15)
--- NOTE | 2025-03-16 18:40 | NUR.NOTE ---
Patient transferred to the ER alert and oriented x 4.
[2025-03-16] MEDS: Doxycycline 100 MG VIAL (19:10)
--- NOTE | 2025-03-16 19:39 | ROE_ITS ---
Operative Note Operative Note PRE-OP DIAGNOSIS: Incomplete POST-OP DIAGNOSIS: same PROCEDURE: Suction dilation and curettage SURGEON: Sabina Cardenas ANESTHESIA TYPE: General LMA/ETT Refer to Anesthesia Record ESTIMATED BLOOD LOSS: 10 PATHOLOGY: other (Retained products of conception) COMPLICATIONS: None Patient was transported to: observation Patient's condition: stable Indications: 25 yo ( x1) s/p 6-7 wk GA pharmacological EAB on 02/14/2025. Has undergone two rounds of pharmacological mamangement. Presented to the ED this evening with abdominal pain and fatigue. Noted to have retained products of conception on ultrasound. Consented for suction dilation and curettage with blood products as needed. Extensively counseled on contraceptive options and offered, but declined. Patient informed of Plan B available over the counter. Findings: Patient was taken to the OR with IV fluids running. She received 100 mg of doxycycline IV for surgical prophylaxis as well as 1 g of IV TXA. Anesthesia was established and the patient was positioned into the dorsal supine position. He a moderate amount of blood was noted, though no evidence of active bleeding. A bimanual exam appreciated to close cervix and no products within the vagina. Her pelvis was prepped with Betadine, and a straight catheterization of the bladder emptied 150 cc of clear urine from the bladder. She was then draped in sterile dressings. A timeout was performed and the patient was identified. Side loading speculum was used to visualize the cervix, which was stabilized with a single-tooth tenaculum on the anterior cervical lip. The cervix was progressively dilated in order to accommodate a 7-8 Pakistani curved tip suction curette. A uterine sound was placed and measured the length to 7-1/2 cm. A 7 Pakistani curved blunt tipped suction curette was carefully placed in the uterus. Suction tubing was then attached, and suction was turned on. The curette was rotated in a clockwise fashion with careful attention to avoid pushing against the fundus of the uterus. Copious material was evacuated from the uterus. The same thing was repeated an additional 2 times, once counterclockwise, then again in clockwise. On the third pass only blood was appreciated. The uterine sound was again placed, and the uterus sounded to 9 cm. A gentle curetting found no further evidence of tissue within the endometrium. Her bleeding was well- controlled. All instruments were removed, and tenaculum sites were made hemostatic with silver nitrate. Patient tolerated the procedure well, and was brought to PACU in good condition. Date of Procedure: 03/16/25
--- NOTE | 2025-03-16 19:54 | W.ANESPOSTOP ---
Postoperative Evaluation Date, Time and Location Date Performed: 03/16/25 Time Performed: 19:55 Patient Location: PACU Vital Signs Most Recent Imported Vital Signs: Most Recent Vital Signs Temp Pulse Resp BP Pulse Ox 36.6 C 115 H 17 125/59 L 96 03/16/25 19:50 03/16/25 19:50 03/16/25 19:50 03/16/25 19:50 03/16/25 19:50 Pain Score Most Recent Pain Score: Most Recent Pain Score Pain Level 0 03/16/25 19:50 Assessment Mental Status: Arousable with meaningful communication Airway and Respiratory Function: Patent airway with normal (patient baseline) respiratory exam Cardiovascular Function: Hemodynamically Stable Hydration Status: Adequately Hydrated Nausea & Vomiting: No Nausea or Vomiting Pain: Pt. Denies Any Pain Peripheral Nerve Block: Patient did not receive a nerve block
[2025-03-16] MEDS: Ketorolac 15 MG/ML VIAL 30 MG IVP (21:27)
[2025-03-16] MEDS: Ondansetron 4 MG/2 ML VIAL IVP (21:39)
[2025-03-17] MEDS: Ondansetron 4 MG/2 ML VIAL IVP (03:53)
[2025-03-17 04:15] VITALS: TEMP 36.9
[2025-03-17] MEDS: Ibuprofen 600 MG TAB PO (06:52)
[2025-03-17 07:57] VITALS: BP 121/68; PULSE 80; RESP 18; TEMP 36.9; O2SAT 100
--- NOTE | 2025-03-17 08:02 | DSE_ITS ---
Date of service: 03/17/25 Time of Service: 08:02 DS: Diagnosis Discharge Diagnosis (1) Incomplete : Status: Acute Asessment and Plan: Incomplete SAB resolved by suction dilation and curettage Discharge Plan Disposition Patient Disposition: Home Condition: Good Discharge Details Reason For Visit: Abd pain Admit Date/Time: 03/16/25 19:34 Admit Provider: Sabina Cardenas Attending Provider: Sabina Cardenas Primary Care Provider: Erlinda Verduzco Hospital Course Hospital Course: 25-year-old -0-8-1 ( x 1) presented to the ED the night of 03/16/2025 for abdominal pain that has progressively worsened over the course the day. Patient reports having undergone an elective, pharmacological termination for 6-7 week (first day last menstrual period 12/25/2024) on February 14, 2025. Patient reports she again presented to the emergency department on February 24 with concerns for heavy bleeding. She was provided with another round of medications which she took. Patient states she did have bleeding following the second dose but no considerable loss of tissue. Her bleeding resolved despite some mild intermittent abdominal pain, and she did not follow-up despite a referral. On 03/16, she began having abdominal pain very early in the morning that progressively worsened over the course of the day. She reported becoming more fatigued as the day went on and her colleagues reportedly told her she was getting pale. Ultrasound was concerning for retained products, and the patient was consented for suction dilation and curettage. Of note, patient states this is her 7th or 8th termination/miscarriage. She reports that she is usually sexually active only with females, and states she is no longer with the partner of her current . She was extensively counseled on contraceptive options and offered offered contraception multiple times but declines. The procedure was performed the evening of 03/16 without issue, and she was monitored overnight. Her recovery was unremarkable. She once more offered and declined contraception the morning of 03/17. She was discharged with instructions for close follow up and was scheduled for follow up in 1 week. She was advised on pelvic rest for two weeks and provided with a doctor's note for the following day. Home Meds and New Rx's Prescriptions: New doxycycline hyclate 100 mg Capsule 100 mg PO Q12H 5 Days Qty: 10 0RF ibuprofen 600 mg Tablet 600 mg PO Q6H PRN PRNQty: 30 0RF Continued verapamil 120 mg tablet extended release 120 mg PO DAILY Qty: 30 5RF cholecalciferol (vitamin D3) 250 mcg (10,000 unit) capsule 250 mcg PO DAILY lamotrigine 25 mg tablet extended release 24hr 25 mg PO DAILY bupropion HCl 150 mg tablet extended release 24 hr 150 mg PO DAILY hydroxyzine HCl 25 mg tablet 25 mg PO .daily pm Discharge Instructions Instructions: Dilation and curettage (D&C) Additional Instructions: Do not insert anything vaginally for at least two weeks and/or until cleared by a physician. Referrals: Sabina Cardenas, [OSTEOPATHIC DOCTOR] - Activity:: Activity as Tolerated Equipment/Supplies:: No Equipment Needed Diet:: As Tolerated Discharge Orders Discharge Orders: Discharge Order (Routine); Ordered 03/17/25 Ordered By: Sabina Cardenas DS: Summary Time Spent with Patient providing and/or coordinating discharge services: Greater than 30 minutes Status at Discharge Functional status at discharge: independent ambulation Overall status at discharge: patient is back to baseline Mental Status: mental status grossly normal Speech and Movement: speech and movement normal Mood: congruent mood Affect: normal affect Quality:SDOH Health Related Social Needs: No Data to Display Exam Const General: cooperative and healthy appearing [facility] Head: normal to inspection Resp Effort & Inspection: normal respiratory effort GI Inspection: normal to inspection Palpation: soft Other: non tender Skin Other: Appropriate Neuro General: patient alert and patient awake Psych Appearance: grossly normal Mental Status: mental status grossly normal Speech and Movement: speech and movement normal Mood: congruent mood Affect: normal affect DS: Data Vitals/I&O Vitals and I&O: Vital Signs Temperature 98.4 F 03/17/25 07:57 Temperature Source Oral 03/17/25 07:57 Pulse 80 03/17/25 07:57 Pulse Rhythm Regular 03/17/25 08:01 Pulse 84 03/16/25 18:15 Respiratory Rate 18 03/17/25 07:57 Blood Pressure 121/68 03/17/25 07:57 Blood Pressure Mean 85 03/17/25 07:57 Pulse Oximetry 100 03/17/25 07:57 Oxygen Delivery Method Room Air 03/17/25 07:57 Oxygen Flow Rate 0 03/17/25 07:57 Pain Level 0 03/17/25 07:57 Intake & Output 03/16/25 03/16/25 03/17/25 11:59 23:59 11:59 Intake Total 500 / 500 Output Total 960 / 960 900 / 900 Balance -460 / -460 -900 / -900 Weight 195 lb Intake: IV 500 / 500 Oral 0 / 0 Output: Urine 950 / 950 900 / 900 Emesis 0 / 0 Estimated Blood Loss Other: Urine Color Pale Urine Appearance Clear Emesis Description None Data Completed and Pending Labs on day of discharge: Labs from last 24 hours 03/16/25 14:52: PT 9.7, INR 1.0 03/16/25 14:40: Lipase 28 03/16/25 14:35: WBC 11.67 H, RBC 3.87 L, Hgb 10.0 L, Hct 32.0 L, MCV 83, MCH 25.8 L, MCHC 31.3 L, RDW 13.5, Plt Count 331, MPV 9.4, Immature Gran % 0.4, Neutrophils % 87.9, Lymphocytes % 5.0, Monocytes % 5.1, Eosinophils % 1.3, Basophils % 0.3, Nucleated RBC % 0.0, Absolute Neutrophils 10.26 H, Absolute Lymphocytes 0.58 L, Absolute Monocytes 0.60, Absolute Eosinophils 0.15, Absolute Basophils 0.04, Sodium 137, Potassium 4.3, Chloride 102, Carbon Dioxide 26.8, Anion Gap 8.2, BUN 17, Creatinine 0.8, Est GFR (CKD-EPI 2020) 104.80, Glucose 94, Calcium 8.7, Total Bilirubin 0.5, AST 31, ALT 37, Alkaline Phosphatase 57, Total Protein 7.4, Albumin 4.1, Beta HCG, Quant 198 H, ABO/Rh O Positive, Antibody Screen NEGATIVE 03/16/25 14:04: Urine Color Yellow, Urine Clarity Cloudy, Urine pH 8.5 H, Ur Specific [place] 1.020, Urine Protein >=300 H, Urine Ketones Negative, Urine Blood Large H, Urine Nitrite Negative, Urine Bilirubin Negative, Urine Urobilinogen 0.2, Ur Leukocyte Esterase Small H, Urine RBC 10-20 H, Urine WBC 10-20 H, Ur Epithelial Cells Rare, Urine Crystals Negative, Urine Bacteria Moderate, Urine Casts Negative, Urine Mucus Moderate, Ur Culture Indicated? Yes, Urine Glucose Negative 03/16/25 14:04 Urine - Reflex from Ua Urine Culture - Pending Preliminary micro results at discharge 03/16/25 14:04 Urine - Reflex from Ua Urine Culture - Pending PFSH All Active Problems Incomplete (Acute) Retained products of conception following (Acute) complicated with hemorrhage (Acute) Nonspecific paroxysmal spell (Acute) Migraine headache without aura (Acute) Chronic headache (Acute) Medical History Morbid obesity Mood disorder Surgical History Hx of section History of cholecystectomy Social History Smoking/Tobacco Use Status: Never Smoking risk assessment performed?: Yes Alcohol Intake: current Alcohol Intake frequency: a few times a month Alcohol type: beer Details: 1-2 TIMES PER MONTH BEER Drug use: Daily Substance use type: marijuana Details: 1-2X PER MONTH Adopted: Yes Household members: family Housing: apartment Number of Children: 1 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 Date GA/Weeks # Preg Succ Route Wgt Sex Labor Lgth Anesth esia Location Prov [facility] 10/29/20 Time Spent with Patient Time Spent with Patient: <45 minutes Time was spent: preparing to see the patient(eg.review tests), obtaining and/or reviewing separately otained hiistory, ordering medications,tests, procedures, referring, communicating with other health progressive care manager, counseling the patient and care coordination
--- NOTE | 2025-04-19 10:09 | NUR.NOTE ---
Patient's chart was reviewed
== END 2025-03-17 08:20 | disposition home or self-care (01) ==
LOC: ER 17:18 → DSU 18:30 → OBS 20:17
PROVIDERS: Physician Assistant; Admitting Provider Obstetrics & Gynecology; Emergency Provider Physician Assistant; Referring Provider Obstetrics & Gynecology; Visit Provider Obstetrics & Gynecology
PROC: (CPT 59841; principal; 2025-03-16 18:10)
DX: O07.4 Failed attempted termination of pregnancy without complication (principal); E66.01 Morbid (severe) obesity due to excess calories; G43.009 Migraine without aura, not intractable, without status migrainosus; Z68.36 Body mass index [BMI] 36.0-36.9, adult
CPT/HCPCS: 59812; 00123; 80053; 81025; 83690; 86850; 86900; 86901; 88305; 96361; 96374; 96375; 96376; 99285; 76705; 76830; 76856; 81003; 81015; 84702; 85025; 85610; 87086; G0378; J0131; J0330; J1100; J1885; J2003; J2250; J2371; J2405; J2704

== ENCOUNTER 2025-03-24 12:23 | Outpatient (REF) | payer OTHER, SELFPAY ==
[2025-03-25 11:27] LABS: Chlamydia Result Negative (Negative); GC Result Negative (Negative)
== END 2025-03-24 12:24 | disposition home or self-care (01) ==
LOC: LBN 12:23
PROVIDERS: PCP Emergency Medicine; Visit Provider Obstetrics & Gynecology
DX: Z11.3 Encounter for screening for infections with a predominantly sexual mode of transmission (principal); Z12.4 Encounter for screening for malignant neoplasm of cervix
CPT/HCPCS: 87491; 87591; 88142

== ENCOUNTER 2025-03-24 12:25 | Outpatient (CLI) | payer OTHER, SELFPAY ==
[2025-03-25 09:29] LABS: HIV-1/2 Ag & Ab Screen Negative (Negative)
[2025-03-25 09:30] LABS: Hepatitis C Ab w Rflx HCV PCR Negative (Negative)
[2025-03-25 11:38] LABS: Syphilis Serology (RPR) Negative (Negative)
[2025-03-25 11:54] LABS: Hepatitis B Surface Ag Negative (Negative)
== END 2025-03-24 12:26 | disposition home or self-care (01) ==
LOC: LBO 12:25
PROVIDERS: PCP Emergency Medicine; Visit Provider Obstetrics & Gynecology
DX: Z91.89 Other specified personal risk factors, not elsewhere classified (principal); Z20.2 Contact with and (suspected) exposure to infections with a predominantly sexual mode of transmission; Z01.419 Encounter for gynecological examination (general) (routine) without abnormal findings; Z12.4 Encounter for screening for malignant neoplasm of cervix; N76.0 Acute vaginitis
CPT/HCPCS: 36415; 86803; 87340; 87389; 86592